=== PATIENT | female | born 1980 | race Caucasian/White ===

== ENCOUNTER 2016-06-07 19:12 | Emergency (ER) | payer SELFPAY ==
[~2016-06-07] VITALS: Ht 160 cm; Wt 72.7 kg
[2016-06-07] MEDS ORDERED: GEMF600T3 PO (19:23)
[2016-06-07] MEDS ORDERED: OMEP20 PO (19:23)
[2016-06-07] MEDS ORDERED: METR500 PO (19:23)
[2016-06-07] MEDS ORDERED: LISI-661 PO (19:23)
[2016-06-07] MEDS ORDERED: LEVO50 PO (19:23)
[2016-06-07] MEDS ORDERED: METO-296 PO (19:23)
[2016-06-07] MEDS ORDERED: LITH300C3 PO (19:23)
[2016-06-07] MEDS ORDERED: VENL50TA44 PO (19:23)
[2016-06-07] MEDS ORDERED: MAGNESIUM SULFATE 2 GM, MVI, ADULT NO.1 WITH VIT K 10 ML, THIAMINE HCL 100 MG, FOLIC AC... IV ONE ×5 (19:30)
[2016-06-07 20:27] LABS: ANION GAP 14 mmol/L (8-16); BASOPHILS % (AUTO) 0.4 % (0.0-2.0); CALCIUM, TOTAL 8.6 mg/dL (8.8-10.5); CARBON DIOXIDE 24 mmol/L (22-29); CHLORIDE 105 mmol/L (98-107); CREATININE 0.85 mg/dL (0.60-1.30); EOSINOPHILS % (AUTO) 0.7 % (1.0-6.0); GLOMERULAR FILTR. RATE CALC > 60 mL/min (>60); HEMOGLOBIN 13.7 g/dL (12.0-16.0); LYMPHOCYTES # (AUTO) 1.9 K/uL (1.0-4.8); LYMPHOCYTES % (AUTO) 23.5 % (22.0-44.0); MEAN CORPUSCULAR HEMOGLOBIN 30.6 pg (26.0-34.0); MEAN CORPUSCULAR HGB CONC 33.4 G/dL (31.0-37.0); MEAN CORPUSCULAR VOLUME 92 fL (80-100); MONOCYTES # (AUTO) 0.7 K/uL (0.1-1.0); MONOCYTES % (AUTO) 8.6 % (2.0-9.0); NEUTROPHILS # (AUTO) 5.5 K/uL (1.8-7.7); NEUTROPHILS % (AUTO) 66.8 % (40.0-70.0); PLATELET COUNT (AUTO) 366 K/uL (150-450); POTASSIUM 3.9 mmol/L (3.5-5.1); RED BLOOD CELL COUNT(AUTO) 4.46 MIL/uL (4.00-5.20); RED CELL DISTRIBUTION WIDTH 13.7 % (11.5-14.5); SODIUM SERUM 143 mmol/L (136-145); UREA NITROGEN, BLOOD 11 mg/dL (7-18); WHITE BLOOD COUNT (AUTO) 8.2 K/uL (4.5-11.0)
[2016-06-07 20:33] LABS: ALANINE AMINOTRANSFERASE 35 U/L (12-78); ASPARTATE AMINOTRANSFERASE 34 U/L (15-37); BILIRUBIN,TOTAL 0.2 mg/dL (0.1-1.0); TOTAL PROTEIN, SERUM 7.5 g/dL (6.4-8.2)
[2016-06-07] MEDS ORDERED: PERTUSS(ACELL),DIPH,TET VAC/PF 0.5 ML VIAL IM ONE (20:45)
[2016-06-07] MEDS ORDERED: IOVERSOL 320 MG/ML 100 ML VIAL ONE (21:53)
[2016-06-08 04:05] VITALS: BP 115/71
== END 2016-06-08 04:17 | disposition home or self-care (01) ==
LOC: EMS 19:14
DX: S31.113A Laceration without foreign body of abdominal wall, right lower quadrant without penetration into peritoneal cavity, initial encounter (principal); R41.82 Altered mental status, unspecified; F10.129 Alcohol abuse with intoxication, unspecified; F17.200 Nicotine dependence, unspecified, uncomplicated; I10 Essential (primary) hypertension; W22.8XXA Striking against or struck by other objects, initial encounter; Y93.89 Activity, other specified; Y92.89 Other specified places as the place of occurrence of the external cause; Y99.8 Other external cause status; Y90.8 Blood alcohol level of 240 mg/100 ml or more
CPT/HCPCS: 12001; 36415; 51702; 71010; 74177; 80053; 80307; 84703; 85025; 90471; 90715; 96365; 99285; 99406; G0480; J3411; J3475; J3490 ×2; J7030; Q9967

== ENCOUNTER 2018-10-09 23:06 | Emergency (ER) | payer OTHER ==
[~2018-10-09] VITALS: Ht 157.5 cm; Wt 76.8 kg
[~2018-10-09 23:06] MED LIST: GEMF600T5 PO; LEVO50 PO; LISI-661 PO; LITH300C3 PO; METO-296 PO; METR500 PO; OMEP20 PO; VENL50TA44 PO
[2018-10-09] MEDS ORDERED: BUPR1FIL5 PO (23:27)
[2018-10-10 02:37] VITALS: BP 135/90
== END 2018-10-10 02:50 | disposition home or self-care (01) ==
LOC: EMS 23:08
DX: F10.239 Alcohol dependence with withdrawal, unspecified (principal); F10.229 Alcohol dependence with intoxication, unspecified; I10 Essential (primary) hypertension; E03.9 Hypothyroidism, unspecified; F31.9 Bipolar disorder, unspecified; F17.290 Nicotine dependence, other tobacco product, uncomplicated; Y90.9 Presence of alcohol in blood, level not specified
CPT/HCPCS: 99406

== ENCOUNTER 2019-05-28 13:42 | Emergency (ER) | payer OTHER ==
[~2019-05-28] VITALS: Ht 157.5 cm; Wt 79.5 kg
[~2019-05-28 13:42] MED LIST changes: +BUPR1FIL5 PO; -GEMF600T5 PO; -LEVO50 PO; -LISI-661 PO; -LITH300C3 PO; -METO-296 PO; -METR500 PO; -OMEP20 PO; -VENL50TA44 PO
[2019-05-28 15:40] VITALS: BP 133/92
== END 2019-05-28 15:45 | disposition home or self-care (01) ==
LOC: EMS 13:43
DX: F19.10 Other psychoactive substance abuse, uncomplicated (principal); F10.10 Alcohol abuse, uncomplicated; F31.9 Bipolar disorder, unspecified; I10 Essential (primary) hypertension; E03.9 Hypothyroidism, unspecified; F17.210 Nicotine dependence, cigarettes, uncomplicated; Y90.9 Presence of alcohol in blood, level not specified
CPT/HCPCS: 99406